=== PATIENT | female | born 1970 | race Caucasian/White ===

== ENCOUNTER 2016-10-24 00:44 | Inpatient (IN) | payer OTHER ==
[~2016-10-24] VITALS: Ht 177.8 cm; Wt 101.5 kg
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
[2016-10-24 01:20] LABS: BASOPHIL % 0.1 %; EOSINOPHIL % 0.2 %; HEMATOCRIT 37.8 % (33.0-46.0); HEMOGLOBIN 13.5 g/dL (10.0-15.0); IMMATURE GRANULOCYTE # 0.1 K/uL (0.0-0.3); IMMATURE GRANULOCYTE % 0.4 %; LYMPHOCYTE % 7.9 %; MCH 33.1 pg (27.0-34.0); MCHC 35.7 gm/dL (32.0-36.5); MCV 92.6 fl (83.0-98.0); MONOCYTE # 0.5 K/uL (0.0-1.0); MONOCYTE % 3.6 %; MPV 9.5 fl (9.4-12.4); NEUTROPHIL # (ANC) 11.4 K/uL (1.8-7.8); NEUTROPHIL % 87.8 %; NRBC % 0 /100WBC (0-0.00); PLATELET COUNT 197 K/uL (150-450); RBC 4.08 M/uL (3.50-5.50); RDW-CV 12.1 % (11.9-14.6); WBC 12.9 K/uL (4.0-11.0)
[2016-10-24 01:30] LABS: INR - (THERAPEUTIC) 1.09 (0.92-1.07); PROTIME 11.5 SECONDS (9.8-11.4); PTT 25 SECONDS (25-32)
[2016-10-24 01:35] LABS: ALBUMIN 3.6 gm/dL (3.5-5.0); ALK PHOS 55 IU/L (33-138); ALT 32 IU/L (12-78); ANION GAP 16.3 (10.0-19.0); AST 25 IU/L (10-40); BLOOD UREA NITROGEN 13 mg/dL (6-24); CHLORIDE 109 mMol/L (96-110); CO2 20 mMol/L (22-32); ESTIMATED GFR (MDRD EQUATION) 60; POTASSIUM 3.3 mMol/L (3.7-5.1); SODIUM 142 mMol/L (135-145); TOTAL BILIRUBIN 0.9 mg/dL (0.0-1.5); TOTAL PROTEIN 6.3 g/dL (6.0-8.4)
[2016-10-24 02:10] LABS: BILIRUBIN URINE NEGATIVE (NEGATIVE); BLOOD URINE 10 /UL (NEGATIVE); COLOR URINE YELLOW (YELLOW); GLUCOSE URINE 50 mg/dL (NEGATIVE); KETONE URINE NEGATIVE (NEGATIVE); LEUKOCYTES URINE NEGATIVE /UL (NEGATIVE); NITRITE URINE POSITIVE (NEGATIVE); PROTEIN URINE 15 mg/dL (NEGATIVE); TURBIDITY URINE CLEAR (CLEAR); UROBILINOGEN URINE NORMAL (NORMAL)
[2016-10-24 02:21] LABS: BACTERIA URINE MODERATE (NEGATIVE); RBC URINE 0-2 #/HPF (NEGATIVE); WBC URINE 0-2 #/HPF (NEGATIVE)
[2016-10-24] MEDS ORDERED: CONTRAVE ER 8-1 EACH PO (11:30)
[2016-10-24] MEDS ORDERED: WELLBUTRIN XL150 M1 PO (11:31)
[2016-10-24] MEDS ORDERED: LOSARTAN-HCTZ1 EAC1 PO (11:31)
--- NOTE | 2016-10-24 12:37 | NUR ---
Patient to room at 0837 from OR. Patient seen in ER and then went to surgery for her left shoulder. Patient has a history of pancreatitis and HTN. Adverse reaction of sorts to morhine and avacados. Daughter at bedside to help provide some patient history. Patient drowsy from OR. Patient able to help contribute to history but does fall asleep rather easily. Will try to update database as patient wakes up.
--- NOTE | 2016-10-24 16:39 | NUR ---
Significant Event: Patient to floor from OR at 0837. Patient A/O to person and time. Patient thoughout she was still in [place]. Moves everything spontaneously. Follows commands. Decreased strength to lower left extremity. Pupils are unequal but that is how she is arrived. L) is 1 mm and brisk and R) is 3 mm and brisk. Post op VSS. Hypertensive. Room air with sats in the mid to high 90s. LS clear and diminished. Temp ranges from 98.7-99.5. 2+ pulses throughout. Batres draining yellow urine. CLear liquid diet. Patient took sips this shift. Offered water every time I rounded. PIV to R) wrist infusing LR at 125 ml/hr. Numerous skin issues. See charting. [place] collar in place. NWB to the left lower extremity. Percocet X1 given in PACU. Patient refused pain meds this shift stating she is doing good. Daughter at bedside. Cooperative with cares. Follow up: Q1H neuro checks
[2016-10-25 05:33] LABS: BASOPHIL % 0.3 %; EOSINOPHIL # 0.1 K/uL (0.0-0.5); EOSINOPHIL % 0.8 %; HEMATOCRIT 32.8 % (33.0-46.0); HEMOGLOBIN 11.6 g/dL (10.0-15.0); IMMATURE GRANULOCYTE % 0.3 %; LYMPHOCYTE # 1.3 K/uL (0.8-4.0); LYMPHOCYTE % 21.5 %; MCHC 35.4 gm/dL (32.0-36.5); MCV 93.2 fl (83.0-98.0); MONOCYTE # 0.4 K/uL (0.0-1.0); MONOCYTE % 5.6 %; MPV 9.3 fl (9.4-12.4); NEUTROPHIL # (ANC) 4.4 K/uL (1.8-7.8); NEUTROPHIL % 71.5 %; NRBC % 0 /100WBC (0-0.00); RBC 3.52 M/uL (3.50-5.50); RDW-CV 12.3 % (11.9-14.6); WBC 6.2 K/uL (4.0-11.0)
[2016-10-25 05:34] LABS: PLATELET COUNT 149 K/uL (150-450)
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
[2016-10-25 05:51] LABS: ALK PHOS 46 IU/L (33-138); ALT 25 IU/L (12-78); ANION GAP 9.3 (10.0-19.0); AST 20 IU/L (10-40); BLOOD UREA NITROGEN 9 mg/dL (6-24); CALCIUM 8.2 mg/dL (8.5-10.5); CHLORIDE 108 mMol/L (96-110); CO2 27 mMol/L (22-32); CREATININE 0.6 mg/dL (0.5-1.1); ESTIMATED GFR (MDRD EQUATION) > 60; POTASSIUM 3.3 mMol/L (3.7-5.1); SODIUM 141 mMol/L (135-145); TOTAL PROTEIN 5.7 g/dL (6.0-8.4)
--- NOTE | 2016-10-25 14:01 | NUR ---
Significant Event: Patient alert and oriented X2. Disoriented to place. Follows commands and moves all extremities spontaneously. Pupils unequal and reactive. Stable since arrival. L) arm numbness. VSS. Hypertensive. Afebrile. Room air with sats in the mid 90s. LS clear and diminished. Voids per bedpan. BS active X4. Regular diet. No appetite. Numerous skin issues. See charting. R) wrist PIV infusing NS with no complications. Full lift. Percocet given for pain. Daughter at bedside. All imagin completed this shift. PT to see patient for pendulum exercises to left shoulder. Follow up: OR or SWB?
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
[2016-10-26 04:33] LABS: BASOPHIL % 0.3 %; EOSINOPHIL # 0.2 K/uL (0.0-0.5); EOSINOPHIL % 2.8 %; HEMATOCRIT 33.7 % (33.0-46.0); HEMOGLOBIN 11.9 g/dL (10.0-15.0); IMMATURE GRANULOCYTE % 0.4 %; LYMPHOCYTE # 1.5 K/uL (0.8-4.0); LYMPHOCYTE % 21.2 %; MCH 32.8 pg (27.0-34.0); MCHC 35.3 gm/dL (32.0-36.5); MCV 92.8 fl (83.0-98.0); MONOCYTE # 0.3 K/uL (0.0-1.0); MONOCYTE % 4.8 %; MPV 9.5 fl (9.4-12.4); NEUTROPHIL # (ANC) 4.9 K/uL (1.8-7.8); NEUTROPHIL % 70.5 %; NRBC % 0 /100WBC (0-0.00); PLATELET COUNT 159 K/uL (150-450); RBC 3.63 M/uL (3.50-5.50); RDW-CV 11.9 % (11.9-14.6); WBC 6.9 K/uL (4.0-11.0)
[2016-10-26 04:51] LABS: ALBUMIN 3.1 gm/dL (3.5-5.0); ALK PHOS 54 IU/L (33-138); ALT 22 IU/L (12-78); ANION GAP 11.4 (10.0-19.0); AST 22 IU/L (10-40); BLOOD UREA NITROGEN 7 mg/dL (6-24); CALCIUM 8.5 mg/dL (8.5-10.5); CHLORIDE 105 mMol/L (96-110); CO2 27 mMol/L (22-32); CREATININE 0.6 mg/dL (0.5-1.1); ESTIMATED GFR (MDRD EQUATION) > 60; POTASSIUM 3.4 mMol/L (3.7-5.1); SODIUM 140 mMol/L (135-145); TOTAL BILIRUBIN 2.3 mg/dL (0.0-1.5); TOTAL PROTEIN 6.4 g/dL (6.0-8.4)
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
--- NOTE | 2016-10-26 14:25 | NUR ---
I spoke with pt and introduced myself and role of care management to pt. She was pretty drowsy and her kids just left for lunch. I will return. I did call and check her insurance benefits. I spoke with [facility] on GIRP and could be a good option and it could be but they will not have beds till early next week. I called [facility] and they do not work with people below age of 65, [place] stated just to fax information and will see. I did call insurance and [facility] in network, [facility], and a management network?, [facility] and [facility] is as well. I will stop by and speak with pt and family again.
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
--- NOTE | 2016-10-26 15:58 | NUR ---
Called [facility] and talked with Zaida, they would be willing to assess to see if they can take pt for a skilled stay. [facility] phone [phone] and fax [phone]. Banking Services Advisor will talk with family and see if they have decided to work on pt going home on discharge vs going to SNF.
[2016-10-27 04:52] LABS: ALBUMIN 3.1 gm/dL (3.5-5.0); ANION GAP 11.6 (10.0-19.0); BLOOD UREA NITROGEN 10 mg/dL (6-24); CALCIUM 8.6 mg/dL (8.5-10.5); CHLORIDE 105 mMol/L (96-110); CO2 27 mMol/L (22-32); CREATININE 0.7 mg/dL (0.5-1.1); ESTIMATED GFR (MDRD EQUATION) > 60; PHOSPHORUS 3.1 mg/dL (2.5-4.9); POTASSIUM 3.6 mMol/L (3.7-5.1); SODIUM 140 mMol/L (135-145)
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
--- NOTE | 2016-10-27 17:29 | NUR ---
Called and spoke with staff at [facility], [facility] and [facility]. 2 said they had not been contacted. [facility] says she did talk to Kelli and told her they couldn't accept private insurance. [facility] says they aren't able to consider her. [facility] says to fax the referral but they are unable to contact the insurance company today as need to review the information first and decide if able to meet her needs. She says therefore, they won't contact the insurance company until Sunday. Spoke with [facility] on GIRP and she doesn't think she qualifies for inpt rehab. Talked to patient's nurse and she says patient doing better today, but no ready to go home. Patient does have 8 steps into home and she says she won't be able to do the steps yet. Nurse says she was a lift this a.m. but then PT told them they could do a 2 person assist pivot with her after they worked with her. Several call with Terese WHITTINGTON regarding placement. Will continue to work on placement for patient.
--- NOTE | 2016-10-28 04:41 | NUR ---
Significant Event: A/OX3. DENIES NUMBNESS AND TINGLING. MOVES ALL EXTREMITIES SPONTANEOUSLY AND TO COMMAND. LEFT SIDE WEAKER THAN RIGHT SIDE. LEFT SLING INTACT. DRESSING TO LEFT SHOULDER C/D/I. LEFT LEG IMMOBILIZER INTACT. NON WEIGHT BEARING TO LEFT LEG. LEFT PUPIL 2.0 AND BRISK, RIGHT PUPIL 3.0 AND SLUGGISH. UP 2 ASSIST/PIVOT GAI BELT AND RIKY WALKER. SBP IN 150S-160S. HR IN 90S-100S. AFEBRILE. LUNGS CLEAR AND DIM ON ROOM AIR. PAIN CONTROLLED WITH PERCOCET - LAST GIVEN AT 2030 AND NORCO - LAST GIVEN AT 0200. POOR APPETITE. DID HAVE LARGE BM THIS SHIFT. IV TO RIGHT WRIST SALINE LOCKED. Follow up: SWING BED VS HOME
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
--- NOTE | 2016-10-29 03:20 | NUR ---
Significant Event: A/Ox3. Ambulates 1A pivot with hemiwalker NWB to LLE and LUE with immobilizer to leg and left arm sling. Denies numbness/tingling at this time. Pupil 3.0 to right and 2.0 to left. [place] 10/325 given x2 tonight. Dressings to LLE and LUE c/d/i. IV to R)wrist SL. Uses ice and pillows for comfort. Follow up:
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
--- NOTE | 2016-10-29 18:38 | NUR ---
Significant Event: a/o x 3. denies numbness/tingling. pain to left shoulder. dsg to left shoulder surgical site C/D/I. Sling to left arm. NWB to left arm. Abrasion to left knee dsg changed- area red and open. Vaseline gauze, dry gauze, cast padding and filipe wrap to leg. Leg immobilizer to left lower extremity. Sutures to forehead intact. NWB to left lower extremity. Transfers with linda walker/gait belt and one assist. Takes meds whole. Regular diet.
--- NOTE | 2016-10-30 07:17 | NUR ---
Significant Event: Alert and oriented x3. 1A pivot with hemiwalker NWB to LLE and LUE with immobilizer to leg and left arm sling. Denies numbness/tingling. Pupil 3.0 to right and 2.0 to left. IV to R)wrist SL. [place] 10/325 given last at approximately 0330. Uses pillows for comfort. Follow up:
[2016-10-30 09:38] LABS: CREATININE 0.7 mg/dL (0.5-1.1); ESTIMATED GFR (MDRD EQUATION) > 60
--- NOTE | 2016-10-30 13:18 | NUR ---
Significant Event: Patient A/O x3. Denies N/T. Follows commands. Able to make needs known. L) hand weak grasp. Pupils unequal. Stable. VSS. Room air with sats in the mid 90s. LS clear and diminished. BS active X4. Voids per commode. Regular diet. Fair appetite. L) shoulder dressing C/D/I. C-Collar on at all times. L) leg dressed with immobilizer. R) wrist PIV. SLL. SBA pivot to commode. NWB to L) Leg. [place] given for pain. pleasant and cooperative with cares. Follow up: home vs SWB?
--- NOTE | 2016-10-30 16:16 | NUR ---
Social visit with pt this am around 10 am. I discussed dc plans and looking like she is ready for the next level of care and where we could do this at. She states absolutely no to [facility] and I told her they will not take for the insurance, [facility] does not accept anyone under 60, and [facility] has the information but need to work on the liability portion. I did tell her about local swingbed that are in network and that we can look at [facility]. She states she really does not want a fdc and wants home but is worried about her work being there along with people needing her. I did tell her she would need a short stay just enough to pivot and transfer and run the w/c but will need help at home and a ramp to get into because she may need this anyway after her surgery in the next 1-2weeks. She then got her on the phone and we discussed all of this again. I told her I would work on the [facility] and [facility] and she needs to speak with family and get everything figured out. I then went back and her friend was there a nurse that works at [facility] and to try them and she thought that was a good idea. In the mean time I called [facility] and they are still looking, [facility] and [facility] states they are full at this time. I called [facility] and [facility] states to fax but they only accept there own pt's. I called the [facility] to see if they were in network. Then Aracely called back and they probably can accept but will need to work on precert and Kelly from [facility] state they can accept and need to work on precert. I then went and updated pt and she spoke with and now first choice would be [facility]. I did review she will have copay's/outof pocket and she understood and that she may or may not have a private room. Kelly stated she will work on precert. I hope to plan on tomorrow and pt states she will have a ride. I called and updated Terese WHITTINGTON and nurse Perera. WIll continue to follow. ID screen done
--- NOTE | 2016-10-30 17:02 | NUR ---
Significant Event: Alert/oriented x 3. Vitals stable. [place] given at 1640 for anticipated pain. Sling to left arm intact; dressing to left shoulder clean/dry/intact. Brace to left leg intact. 1 assist with gait belt for transfers/pivot to commode. Follow up:
--- NOTE | 2016-10-31 04:50 | NUR ---
Significant Event: AAOx3, denies N/T. R) pupil 4mm sluggish, L) pupil 3mm brisk. [place] collar on at all times. LUE sling present, elevated with pillow and ice applied, able to wiggle fingers and weak hand grasp present, composite dressing C/D/I. LLE immobilizer present, filipe wrap dressing C/D/I, able to plantar/dorsiflex and wiggles toes 1-2+ edema. Non-weight bearing to LLE, uses linda-walker 1PA pivot to bs for toileting. Systolic 130's, HR 80-90's. L.S. clear and diminished in lower lobes on RA. B.S. active, last BM 10/28. Urinates per BSC. PIV R) hand SL'd. Takes meds whole. Regular diet. Gave [place] last at 0322 for L) shoulder pain; relief noted. Follow up: Neuro checks, bed/chair alarms on at all times. Monitor breakthrough pain. SWB placement.
--- NOTE | 2016-10-31 08:25 | NUR ---
PT MOVED TO NO RISK INTAKE TYPICALLY 75-100%. WILL CONT ENSURE BID TO MAINTAIN NUTRITION STATUS.
--- NOTE | 2016-10-31 14:11 | NUR ---
I did call [facility] and spoke with Griselda and she stated they are just waiting on the insurance approval. I explained I faxed orders and is ready to go when they get approval. I then got a call at 1200 and Griselda stated they are not able to accept pt at all now with the liability and insurance. I then called Evelina back at [facility] and they are still marly full with beds and will get back to me, I called [facility] and [facility] stated she will think about it and get back to me. I then went and talked with pt and updated her and she got her on the phone. She asked why can she not go home. I explained she can if she has some help and if the got some way to get her in her home and looking at a ramp. I did tell her I have [facility] lined up if that is the case and the w/c, linda walker and commode we can get. Its more about making sure he can help or they have people lined up. She states she thinks she can do fine at home just worried about her job and people coming in. Her is totally overwhelmed and I explained the swingbed or skilled is just a bandaid she is getting close to the point of home and insurance will not cover anyway because she will just be pivot type transfer until her surgery on the . I told him [facility] is having issue with her liability and her private insurance because it can take time for the payments to be resolved. I again told him he needs to work on a plan b. He mentioned a handicapped motel room and I stated yes but still he will need to have helped lined up, I did mention respite room at one of the [facility] and that would be private pay or I can keep looking father down the road with [facility] and [place] and wait to see with [facility] has to say but the pt is ready to leave for home or next level of care. He states work on that but pt really wants to go home. I did call [facility] and spoke with Sana and faxed referral I also called and left a vm for Chadwick at [facility]. WIll continue to follow.
--- NOTE | 2016-10-31 14:38 | NUR ---
Sana called back from [facility] and stated they can not accept pt.
--- NOTE | 2016-10-31 15:30 | NUR ---
I did talk with Chadwick and she will look at the information when she gets back to the hospital. I called Aracely back at [facility] and she states they can accept and will work on the insurance precert. Bill the PA will be accepting and to call him at [phone]. I did talk with pt and she said fine to whatever but thinks her is working at getting her home, I told her pending insurance approval [facility] can take. I then call Bertin and he thinks anywhere would be fine but also working on home just in case. I explained we will need to make sure of the insurance. I told him acute rehab not an option due to limited movement and not a lot to do for 3 hrs and that her community case manager with [employer] agreed as well. I will update Terese WHITTINGTON and nursing.
--- NOTE | 2016-10-31 18:00 | NUR ---
Significant Event: A/O x 3, cooperative with cares. VSS. UP with 1 assist, GB and linda walker, pivot to chair or commode. [place] 1 tab given q 3 hours prn. Last at 1415 with relief. Showered today, tolerated well. Kerlix/filipe wrap to L) lower leg and immobilizer on over it. Has multiple abrasions on body, silvadine cream applied. PIV to R) wrist saline locked. Follow up:plan to skilled once precertification is done
--- NOTE | 2016-11-01 04:35 | NUR ---
Significant Event: A/OX3. DENIES NUMBNESS AND TINGLING. MOVES ALL EXTREMITIES SPONTANEOUSLY AND TO COMMAND. MODERATE STRENGHT. IMMOBILIZER TO LEFT KNEE- NON WEIGHTBEARING. LEFT ARM SLING - NON WEIGHTBEARING. DRSSING TO LEFT SHOULDER C/D/I. KERILEX AND PAYAL WRAP TO LEFT KNEE C/D/I. LEFT PUPIL 2.0 AND BRISK. RIGHT PUPIL 3.0 AND SLUGGISH. LUNGS CLEAR ON ROOM AIR. VSS. AFEBRILE. EDEMA TO LEFT HAND AND LEFT LEG. NORCO AND PERCOCET GIVEN FOR PAIN CONTROL. LAST NORCO AT 0300. LAST PERCOCET AT 0000. IV TO RIGHT HAND SALINE LOCKED. UP 1 ASSIST RIKY WALKER. MULITPLE ABRASIONS - ALL SCABBED OVER AND HEALING. Follow up: PLACEMENT
--- NOTE | 2016-11-01 11:00 | NUR ---
Chadwick called from [facility] and unable to accept pt as well. [facility] no word yet still so no beds.
--- NOTE | 2016-11-01 14:16 | NUR ---
I did talk with pt this am around 1045 and explained I am just waiting on insurance for the approval for swingbed and Dontae WHITTINGTON will be accepting. I asked about a ride and yes she can find one. I told her and nursing I would keep them updated. I called Aracely around 1100 and asked if they have heard anything and they have not. I left a with Lucretia my [facility] reviewer asking about this and also call the precert line at 1300 and it is in the medical review hands. I spoke with Bertin and told him that I am waiting on the approval with insurance and will keep him updated.
--- NOTE | 2016-11-01 14:46 | NUR ---
I called Aracely and explained insurance certed 7 days of subacute level of care. I then called and spoke with him and explained we got approval and she can go. He stated he will need to get his ride lined up. I told him this am that it could happen today and yes he stil wants to go to [facility] and yes he knows where it is and he also knows the nurses there as well. I then called and updated charge nurse Bee. Will assist as needed.
--- NOTE | 2016-11-01 15:10 | NUR ---
Pt has stable vitals. Rates pain 2-4/10. [place] [address] one tab last dose at 1515. Pt takes Percocet 1 tab for break through, last dose at 0854. Kerlix and filipe wrap and immobilizer to L leg. Dsg to L shoulder is CDI, L arm sling intact. Pt is non weight bearing on L. Uses hemiwalker and SBA of 1 to transfer, pivot. Pulses +2 in Upper extremities, +1 in LLE, +2 RLE. Wiggles toes. Numerous abrasions to face, arms. Lungs clear throughout on RA. Pt voids per BSC and last BM 10/31. Report called to [facility] [phone].
[2016-11-13] MEDS ORDERED: COLACE100 MG PO (15:26)
[2016-11-13] MEDS ORDERED: ROXICODONE 5MG (5 MG PO (15:30)
== END 2016-11-01 17:45 | DRG 493 ==
LOC: GACC 00:44 → GNTU 03:18 → EDBD 11-01 17:45
PROVIDERS: Family Medicine; Orthopaedic Surgery; Physician Assistant; ADMIT Surgery
DX: S42.252A Displaced fracture of greater tuberosity of left humerus, initial encounter for closed fracture (principal); S82.142A Displaced bicondylar fracture of left tibia, initial encounter for closed fracture; S09.90XA Unspecified injury of head, initial encounter; S02.2XXA Fracture of nasal bones, initial encounter for closed fracture; S14.3XXA Injury of brachial plexus, initial encounter; S01.81XA Laceration without foreign body of other part of head, initial encounter; V29.59XA Motorcycle passenger injured in collision with other motor vehicles in traffic accident, initial encounter; I10 Essential (primary) hypertension; E87.6 Hypokalemia; H57.02 Anisocoria
CPT/HCPCS: C1713; G0480; J0690; J1650; J3010; J3480; J7030; J7040; J7120; Q9967

== ENCOUNTER → 2016-10-24 | Outpatient (CLI) | payer OTHER ==
[~2016-10-24] MED LIST: COLACE100 MG PO; CONTRAVE ER 8-1 EACH PO; LOSARTAN-HCTZ1 EAC1 PO; NORCO 10-325 T1 EACH PO; PERCOCET 5-3251 EACH PO; ROXICODONE 5MG (5 MG PO; WELLBUTRIN XL150 M1 PO
== END | disposition disaster alternative care site (69) ==
LOC: EDBD 00:07 → GAIR 00:07
DX: S49.92XA Unspecified injury of left shoulder and upper arm, initial encounter (principal); M25.512 Pain in left shoulder; K86.1 Other chronic pancreatitis; M21.922 Unspecified acquired deformity of left upper arm; R41.0 Disorientation, unspecified; V29.9XXA Motorcycle rider (driver) (passenger) injured in unspecified traffic accident, initial encounter
CPT/HCPCS: A0422; A0431; A0436; J2405; J3010

== ENCOUNTER → 2016-11-13 | Outpatient (CLI) | payer OTHER | END | disposition disaster alternative care site (69) | LOC: GRAD 11:00 → EDBD 11:00 → GRAD 13:00 | DX: S82.142D Displaced bicondylar fracture of left tibia, subsequent encounter for closed fracture with routine healing (principal); S42.92XD Fracture of left shoulder girdle, part unspecified, subsequent encounter for fracture with routine healing; X58.XXXD Exposure to other specified factors, subsequent encounter | CPT/HCPCS: J2250 ==

== ENCOUNTER → 2016-11-13 | Outpatient (CLI) | payer OTHER | END | disposition disaster alternative care site (69) | LOC: GRAD 15:00 → EDBD 15:38 → GRAD 15:38 | DX: S62.102A Fracture of unspecified carpal bone, left wrist, initial encounter for closed fracture (principal); S52.502A Unspecified fracture of the lower end of left radius, initial encounter for closed fracture; W19.XXXA Unspecified fall, initial encounter ==

== ENCOUNTER 2016-11-14 10:59 | Day surgery (SDC) | payer OTHER ==
[~2016-11-14] VITALS: Ht 177.8 cm; Wt 98.5 kg
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
[~2016-11-14 10:59] MED LIST changes: -NORCO 10-325 T1 EACH PO; -PERCOCET 5-3251 EACH PO
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
--- NOTE | 2016-11-15 04:41 | NUR ---
Shift Summary: Patient still has improving numbness/tingling to left hand from block. Can wiggle fingers well. She is non-wt bearing to left leg from earlier injury until brace delivered and then she can be 50% wt bearing. She is a one assist to transfer. Gave [place] at 0218. Will go home today.
[2016-11-15] MEDS ORDERED: PERCOCET 5-3251 EACH PO (10:08)
[2016-11-15] MEDS ORDERED: NORCO 10-325 T1 EACH PO (10:09)
--- NOTE | 2016-11-15 11:57 | NUR ---
PT AND HER GIVEN DISCHARGE INSTRUCTIONS AND VOICES UNDERSTANDING. MEDICATIONS AND CAST CARES REVIEWED. SLING SLEEVE GIVEN TO PT AND SHOWER SLEEVE ALSO SENT WITH PT. ESCORTED TO THE FRONT DOOR BY CHASITY TRIANA. FAMILY AT PT'S SIDE.
== END 2016-11-15 11:30 | disposition disaster alternative care site (69) ==
LOC: EDBD 10:59 → G3N 10:59 → GPOC 10:59 → G3N 17:18 → GPOC 11-15 11:30
PROC: 0PSJ04Z Reposition Left Radius with Internal Fixation Device, Open Approach (ICD-10-PCS; principal; 2016-11-14)
DX: S52.572A Other intraarticular fracture of lower end of left radius, initial encounter for closed fracture (principal); G43.909 Migraine, unspecified, not intractable, without status migrainosus; F32.9 Major depressive disorder, single episode, unspecified; I10 Essential (primary) hypertension; Z98.890 Other specified postprocedural states; Z90.49 Acquired absence of other specified parts of digestive tract; Z88.5 Allergy status to narcotic agent; Z79.899 Other long term (current) drug therapy; X58.XXXA Exposure to other specified factors, initial encounter
CPT/HCPCS: C1713; J0690; J1170; J2001; J2250; J7120

== ENCOUNTER → 2016-11-27 | Outpatient (CLI) | payer OTHER ==
[~2016-11-27] MED LIST changes: +NORCO 10-325 T1 EACH PO; +PERCOCET 5-3251 EACH PO
== END | disposition disaster alternative care site (69) ==
LOC: GRAD 11:56 → EDBD 12:00 → GRAD 12:00
DX: S42.252D Displaced fracture of greater tuberosity of left humerus, subsequent encounter for fracture with routine healing (principal); S82.142D Displaced bicondylar fracture of left tibia, subsequent encounter for closed fracture with routine healing; S52.502D Unspecified fracture of the lower end of left radius, subsequent encounter for closed fracture with routine healing; X58.XXXD Exposure to other specified factors, subsequent encounter